=== PATIENT | male | born 1980 | race Two or more races ===

== ENCOUNTER 2017-03-18 09:06 | Emergency (ER) | payer MEDICAID, OTHER ==
[~2017-03-18] VITALS: Ht 175.3 cm; Wt 107.0 kg
[2017-03-18] MEDS ORDERED: ASPirin 81 mg TAB ONE (09:20)
[2017-03-18] MEDS ORDERED: NITROGLYCERIN 0.4 MG SL TAB SL ONE ×2 (09:31→09:45)
[2017-03-18] MEDS ORDERED: ASPirin 81 mg TAB PO ONE (09:45)
[2017-03-18 10:50] LABS: Basophils # (auto) 0 uL; Basophils % (auto) 0.4 % (0.0-2.0); Eosinophils # (auto) 0 uL; Eosinophils % (auto) 0.2 % (0.0-7.0); Hematocrit 46.6 % (41.0-53.0); Hemoglobin 15.8 g/dL (13.5-17.5); Lymphocytes # (auto) 1.3 uL; Lymphocytes % (auto) 15.7 % (10.0-50.0); Mean Corpuscular Hemoglobin 29.8 pg (28.0-32.0); Mean Corpuscular Hgb Conc. 33.9 g/dL (32.0-36.0); Mean Platelet Volume 9.9 fL (6.9-10.8); Monocytes # (auto) 0.3 uL; Monocytes % (auto) 3.5 % (0.0-12.0); Neutrophils # (auto) 6.7 uL; Neutrophils % (auto) 80.2 % (37.0-80.0); Nucleated Red Blood Cells % 0.1 %; Platelet Count (auto) 175 10^3/uL (140-450); Red Cell Distribution Width 13.5 % (11.8-14.3); White Blood Cell 8.4 10^3/uL (4.4-10.8)
[2017-03-18 11:10] LABS: Albumin 4.2 g/dL (3.4-5.0); BUN/Creatinine Ratio 17.4; Bilirubin, Total 0.3 mg/dL (0.2-1.0); Calcium 9.3 mg/dL (8.5-10.1); Magnesium 2.2 mg/dL (1.6-2.6); Potassium 4.2 mmol/L (3.5-5.1); Total Protein 8.7 g/dL (6.4-8.2)
[2017-03-18 11:43] VITALS: BP 148/95
== END 2017-03-18 11:44 | disposition home or self-care (01) ==
LOC: ER 09:19
DX: R07.89 Other chest pain (principal); M32.9 Systemic lupus erythematosus, unspecified; Z83.3 Family history of diabetes mellitus
CPT/HCPCS: 36415; 71020; 80053; 83735; 84484; 85025; 93005